=== PATIENT | female | born 1960 | race African-American/Black ===

== ENCOUNTER 2018-06-18 12:40 | Emergency (ER) | payer MEDICAID ==
[2018-06-18 12:48] VITALS: BP 147/66
--- NOTE | 2018-06-18 13:08 | ER Document Report ---
ED General - General Chief Complaint: Blood Pressure Problem Stated Complaint: BLOOD PRESSURE ISSUES Time Seen by Provider: 06/18/18 13:08 TRAVEL OUTSIDE OF THE [place] IN LAST 30 DAYS: No - HPI Patient complains to provider of: medication refill after moving Onset: Other - Related Data Allergies/Adverse Reactions: No Known Allergies Allergy (Verified 06/18/18 12:44) Past Medical History - General Information source: Patient - Social History Smoking Status: Never Smoker Family History: None Review of Systems - Review of Systems -: Yes All other systems reviewed and negative Physical Exam - Vital signs Vitals: Temp Pulse Resp BP Pulse Ox 98.9 F 93 18 147/66 H 100 06/18/18 12:47 06/18/18 12:47 06/18/18 12:47 06/18/18 12:47 06/18/18 12:47 - General General appearance: Appears well In distress: None - HEENT Head: Normocephalic Eyes: Normal Conjunctiva: Normal - Respiratory Respiratory status: No respiratory distress Chest status: Nontender Breath sounds: Normal - Cardiovascular Rhythm: Regular Heart sounds: Normal auscultation Murmur: No - Abdominal Inspection: Normal - Back Back: Normal - Extremities General upper extremity: Normal inspection General lower extremity: Normal inspection - Neurological Neuro grossly intact: Yes Cognition: Normal Orientation: AAOx4 - Psychological Associated symptoms: Normal affect Course - Re-evaluation Re-evalutation: 06/18/18 19:09 Ms. Sanford presents for evaluation of medication refill in the setting of having moved recently from [place] and losing her care. She takes amlodipine as well as aspirin daily for hypertension she has had a stroke in the past as well as uncontrolled hypertension because of her previous history believe it is her best in benefit to treat her, will plan for administration of this medication well emergency department prescription for one -month supply of each medication encouraged follow-up she is now got Medicaid believes that she will be able to obtain follow-up appropriately. Patient be discharged with return precautions at this time she does have known hypertension she will follow-up the next 2 weeks in regard to this, she has been treated with amlodipine, she has no focal numbness or weakness is otherwise well-appearing. - Vital Signs Vital signs: Temp Pulse Resp BP Pulse Ox 98.9 F 93 18 147/66 H 100 06/18/18 12:47 06/18/18 12:47 06/18/18 12:47 06/18/18 12:47 06/18/18 12:47 Discharge - Discharge Clinical Impression: Medication care plan discussed with patient, Medication refill Hypertension Qualifiers: Hypertension type: unspecified Qualified Code(s): I10 - Essential (primary) hypertension Condition: Good Disposition: HOME, SELF-CARE Instructions: High Blood Pressure ([facility]), High Blood Pressure, Requiring Treatment ([facility]) Additional Instructions: You were seen in the emergency department for your high blood pressure and running out of medications, you had evaluation including physical exam, you should schedule an appointment with a physician in the coming week for blood pressure control management. You have had a refill prescribed of your amlodipine as well as aspirin. Please take them as directed. Return for any worsening chest pain shortness of breath fevers or chills. Prescriptions: Amlodipine Besylate 10 mg PO DAILY #30 tab Aspirin [Aspirin 325 mg Tablet] 325 mg PO DAILY PRN #1 pkg PRN Reason: Forms: Elevated Blood Pressure
[2018-06-18] MEDS ORDERED: AMLODIPINE BESYLATE 10 MG TABLET PO ONE (13:19)
[2018-06-18] MEDS ORDERED: ASPIRIN 325 MG TABLET PO ONE (13:19)
== END 2018-06-18 13:25 | disposition home or self-care (01) ==
LOC: ER 12:40
DX: I10 Essential (primary) hypertension (principal)
CPT/HCPCS: 99283

== ENCOUNTER 2018-10-29 16:32 | Emergency (ER) | payer MEDICAID ==
--- NOTE | 2018-10-29 17:42 | ER Document Report ---
HPI - HPI Patient complains to provider of: Insomnia last night Time Seen by Provider: 10/29/18 17:09 Onset: Yesterday Quality of pain: No pain Severity: None Pain Level: Denies Context: 58-year-old female presented to ED because she could not sleep at all last night. Daughter states she has a history of high blood pressure, insomnia, paranoid schizophrenia, and has had a bilateral tubal ligation and her gallbladder removed. Patient was very confused and was not able to give us history until her daughter returned to the room. Patient is on Sertraline 25 mg 1 qd, trazodone 50 mg 1/2-1 pill daily in the evening for sleep, aspirin 325 1 by mouth daily vitamin D 2 50,000 units 1 weekly and amlodipine 5 mg 1 by mouth daily. States she has not seen a mental health provider while she has been in this area. I have given her a list of mental health providers to follow-up with. Associated Symptoms: Other - Insomnia last night Exacerbated by: Denies Relieved by: Denies Similar symptoms previously: Yes Recently seen / treated by doctor: No - ROS ROS below otherwise negative: Yes - CONSTITUTIONAL Constitutional: DENIES: Fever, Chills - EENT EENT: DENIES: Sore Throat, Ear Pain, Nasal Drainage-Clear, Nasal Drainage- Purulent, Congestion, Eye problems - NEURO Neurology: DENIES: Headache, Weakness, Vision blurred, Dizzinesss / Vertigo - CARDIOVASCULAR Cardiovascular: DENIES: Chest pain - RESPIRATORY Respiratory: DENIES: Trouble Breathing, Coughing - GASTROINTESTINAL Gastrointestinal: DENIES: Abdominal Pain, Nausea, Patient vomiting, Diarrhea, Constipation, Black / Bloody Stools - URINARY Urinary: DENIES: Dysuria, Urgency, Frequency - REPRODUCTIVE Reproductive: DENIES: :, Postmenopausal, Abnormal bleeding / discharge - MUSCULOSKELETAL Musculoskeletal: DENIES: Extremity pain, Back Pain, Neck Pain, Swelling - DERM Skin Color: Normal Skin Problems: None Past Medical History - General Information source: Relative - Daughter - Social History Smoking Status: Never Smoker Frequency of alcohol use: None Drug Abuse: None Lives with: Family Family History: None Patient has suicidal ideation: No Patient has homicidal ideation: No - Past Medical History Cardiac Medical History: Reports: Hx Hypertension Pulmonary Medical History: Reports: None EENT Medical History: Reports: None Neurological Medical History: Reports: Hx Cerebrovascular Accident - x 4 Endocrine Medical History: Reports: None Renal/ Medical History: Reports: None Malignancy Medical History: Reports: None GI Medical History: Reports: None Musculoskeletal Medical History: Reports None Skin Medical History: Reports None Psychiatric Medical History: Reports: Hx Depression, Hx Schizophrenia - Paranoid schizophrenia Traumatic Medical History: Reports: None Infectious Medical History: Reports: None Past Surgical History: Reports: Hx Cholecystectomy, Hx Tubal Ligation Vertical Provider Document - CONSTITUTIONAL Agree With Documented VS: Yes Exam Limitations: Other - She was confused and history was obtained from daughter General Appearance: WD/WN, No Apparent Distress - INFECTION CONTROL TRAVEL OUTSIDE OF THE [place] IN LAST 30 DAYS: No - HEENT HEENT: Atraumatic, Normal ENT Exam, Normocephalic, PERRLA - RESPIRATORY Respiratory: Breath Sounds Normal, No Respiratory Distress - MUSCULOSKELETAL/EXTREMETIES Musculoskeletal/Extremeties: MAEW, FROM, Non-Tender - NEURO Level of Consciousness: Awake, Alert, Confused Deep Tendon Reflexes: 2+ - DERM Integumentary: Warm, Dry, No Rash Course - Re-evaluation Re-evalutation: 10/29/18 17:44 Patient was seen in the ED for insomnia last night. Daughter states that she has not slept since yesterday morning. Daughter instructed to give the patient 2 of her 50 mg trazodone's tonight and to follow-up with her primary doctor as soon as possible to have her medications adjusted. Daughter was also given a list of mental health providers in the area for her to follow-up with and have patient's medications adjusted. When daughter came back into the room patient was able to answer questions more appropriately. - Vital Signs Vital signs: Temp Pulse Resp BP Pulse Ox 98.9 F 117 H 20 177/82 H 100 10/29/18 16:42 10/29/18 16:42 10/29/18 16:42 10/29/18 16:42 10/29/18 16:42 Discharge - Discharge Clinical Impression: Insomnia Qualifiers: Insomnia type: unspecified Qualified Code(s): G47.00 - Insomnia, unspecified Condition: Stable Disposition: HOME, SELF-CARE Additional Instructions: Insomnia Everybody has trouble sleeping now and then. When it becomes a frequent problem, you must look for an underlying cause. Depression can interfere with sleep. Anxiety keeps people from falling asleep, while true depression causes fitful sleep and early awakening. If you think anxiety or depression might be your problem, your doctor can help. Many medicines can interfere with sleep. Try cutting back or eliminating caffeine. Watch out for "energizing" vitamins and herbs! Alcohol interferes powerfully with normal sleep. "Rebound insomnia" results when you stop taking sedating medicines like antihistamines, antianxiety medicine, or sleeping pills. Any medical problem that causes pain or bladder discomfort can interfere with sleep. Discuss any problem you have with your doctor. Get regular exercise. Have regular sleep times. Don't "sleep in." Avoid late afternoon naps. Sleeping pills may be temporarily helpful, but are never a long-term solution. FOLLOW-UP CARE: If you have been referred to a physician for follow-up care, call the physicians office for an appointment as you were instructed or within the next two days. If you experience worsening or a significant change in your symptoms, notify the physician immediately or return to the Emergency Department at any time for re-evaluation. Forms: Elevated Blood Pressure Referrals: CAITLIN LIMA PA-C [NO LOCAL MD] - Follow up as needed
[2018-10-29 18:43] VITALS: BP 145/72
== END 2018-10-29 18:48 | disposition home or self-care (01) ==
LOC: ER 16:32
DX: G47.00 Insomnia, unspecified (principal); I10 Essential (primary) hypertension; Z98.51 Tubal ligation status; Z90.49 Acquired absence of other specified parts of digestive tract; Z86.73 Personal history of transient ischemic attack (TIA), and cerebral infarction without residual deficits
CPT/HCPCS: 99283

== ENCOUNTER 2018-11-03 17:25 | Emergency (ER) | payer MEDICAID ==
--- NOTE | 2018-11-03 19:07 | ER Document Report ---
ED Medical Screen (RME) - General Chief Complaint: Psych Problem Stated Complaint: PSYCH PROBLEM Time Seen by Provider: 11/03/18 18:55 TRAVEL OUTSIDE OF THE [place] IN LAST 30 DAYS: No - Related Data Allergies/Adverse Reactions: No Known Allergies Allergy (Verified 11/03/18 19:02) Past Medical History - Social History Chew tobacco use (# tins/day): No Frequency of alcohol use: None Drug Abuse: None - Past Medical History Cardiac Medical History: Reports: Hx Hypertension Neurological Medical History: Reports: Hx Cerebrovascular Accident - x 4 Renal/ Medical History: Denies: Hx Peritoneal Dialysis Psychiatric Medical History: Reports: Hx Bipolar Disorder, Hx Depression, Hx Schizophrenia - Paranoid schizophrenia Past Surgical History: Reports: Hx Cholecystectomy, Hx Tubal Ligation Physical Exam - Vital signs Vitals: Temp Pulse Resp BP Pulse Ox 98.5 F 83 16 148/60 H 97 11/03/18 17:48 11/03/18 17:48 11/03/18 17:48 11/03/18 17:48 11/03/18 17:48 Course - Re-evaluation Re-evalutation: 11/03/18 19:07 There is a 58-year-old female with schizophrenia and a persistent paranoid delusion that a man is out to get her. Over the last 2 weeks her sister notes who is also her primary caregiver at home that she continues to think that she is seeing a gentleman named Florentino who is attempting to kill her. This is making her sometimes do unpredictable things. Have seen and evaluated this patient in rapid medical screening examination, he will require further evaluation reassessment and disposition determination by secondary medical provider. - Vital Signs Vital signs: Temp Pulse Resp BP Pulse Ox 98.5 F 83 16 148/60 H 97 11/03/18 17:48 11/03/18 17:48 11/03/18 17:48 11/03/18 17:48 11/03/18 17:48
[2018-11-03 19:59] LABS: ABSOLUTE EOSINOPHILS # (AUTO) 0.1 10^3/uL (0.0-0.6); ABSOLUTE LYMPHOCYTES (AUTO) 2.4 10^3/uL (0.5-4.7); ABSOLUTE MONOCYTES (AUTO) 0.4 10^3/uL (0.1-1.4); ABSOLUTE NEUT (AUTO) 4.5 10^3/uL (1.7-8.2); BASOPHILS % (AUTO) 0.4 % (0-2); EOSINOPHILS % (AUTO) 1.2 % (0-6); HEMATOCRIT 37.3 % (36.0-47.0); HEMOGLOBIN 12.5 g/dL (12.0-15.5); LYMPHOCYTES % (AUTO) 32.6 % (13-45); MEAN CORPUSCULAR HEMOGLOBIN 27.8 pg (27.0-33.4); MEAN CORPUSCULAR HGB CONC 33.4 g/dL (32.0-36.0); MEAN CORPUSCULAR VOLUME 83 fl (80-97); MONOCYTES % (AUTO) 5.2 % (3-13); PLATELET COUNT 257 10^3/uL (150-450); RED BLOOD COUNT 4.48 10^6/uL (3.72-5.28); RED CELL DISTRIBUTION WIDTH 14.1 % (11.5-14.0); SEGMENTED NEUTROPHILS % (AUTO) 60.6 % (42-78); TOTAL CELLS COUNTED % (AUTO) 100 %; WHITE BLOOD COUNT 7.5 10^3/uL (4.0-10.5)
[2018-11-03 20:13] LABS: ALANINE AMINOTRANSFERASE 16 U/L (9-52); ALBUMIN 4.4 g/dL (3.5-5.0); ALKALINE PHOSPHATASE 86 U/L (38-126); ANION GAP 8 (5-19); ASPARTATE AMINO TRANSFERASE 13 U/L (14-36); BILIRUBIN,DIRECT 0.2 mg/dL (0.0-0.4); BILIRUBIN,TOTAL 0.3 mg/dL (0.2-1.3); BLOOD UREA NITROGEN 12 mg/dL (7-20); CALCIUM 9.5 mg/dL (8.4-10.2); CARBON DIOXIDE 29 mmol/L (22-30); CHLORIDE 108 mmol/L (98-107); GLUCOSE 91 mg/dL (75-110); POTASSIUM 3.7 mmol/L (3.6-5.0); SALICYLATE 3.6 mg/dL (2.0-20.0); SODIUM 144.6 mmol/L (137-145); TOTAL PROTEIN 7.5 g/dL (6.3-8.2)
[2018-11-03 20:14] LABS: ACETAMINOPHEN < 10 ug/mL (10-30); ALCOHOL < 10 mg/dL (NONE DETECTED)
[2018-11-03 21:15] LABS: APPEARANCE,URINE CLOUDY; BILIRUBIN,URINE NEGATIVE (NEGATIVE); COLOR,URINE YELLOW; GLUCOSE, URINE NEGATIVE (NEGATIVE); KETONES,URINE NEGATIVE (NEGATIVE); LEUKOCYTE ESTERASE,URINE TRACE (NEGATIVE); NITRITE,URINE NEGATIVE (NEGATIVE); PROTEIN,URINE 30 mg/dL (NEGATIVE); URINE SPECIFIC GRAVITY 1.016; UROBILINOGEN,URINE NEGATIVE mg/dL (<2.0)
[2018-11-03 21:17] LABS: URINE AMPHETAMINES SCREEN NEGATIVE; URINE BARBITURATES SCREEN NEGATIVE; URINE BENZODIAZEPINES SCREEN NEGATIVE; URINE COCAINE SCREEN NEGATIVE; URINE MARIJUANA (THC) SCREEN NEGATIVE; URINE METHADONE SCREEN NEGATIVE; URINE PHENCYCLIDINE SCREEN NEGATIVE
[2018-11-03] MEDS ORDERED: HALOPERIDOL 5 MG TABLET PO ONE (22:59)
--- NOTE | 2018-11-03 22:59 | EKG REPORT ---
SEVERITY:- ABNORMAL ECG - SINUS RHYTHM INFERIOR INFARCT, AGE INDETERMINATE : Confirmed by: Ana Rivas MD 03-Nov-2018 22:58:31
--- NOTE | 2018-11-03 23:00 | ER Document Report ---
Addendum entered and electronically signed by BRITTNY GAVIRIA PSYD 11/04/18 12:49: Discharge - Discharge Clinical Impression: Acute paranoia, Delusion Schizophrenia Qualifiers: Schizophrenia type: unspecified Qualified Code(s): F20.9 - Schizophrenia, unspecified Condition: Stable Disposition: HOME, SELF-CARE Additional Instructions: You were assessed and evaluated at [facility] ED by the medical and behavioral health teams for paranoia and delusions and determined to be appropriate for discharge. During your stay you received the following services: initial medical screening, labs, EKG, medications, meal services, nursing services, direct staff observ ation, case management, clinical evaluation, physician assessment and re- assessment. Review of record revealed you had a recent visit to the ED for a similar presentation and returned to your outpatient provider who did a medication adjustment without effect. No medication adjustments were made during this stay as you reported you were able to obtain sleep. You have a follow up appointment scheduled with [facility] on November 17, 2018 and are encouraged to attend that appointment and remain compliant with your medication. Schizophrenia Schizophrenia is a chemical disorder that affects how the brain functions. The exact cause is unknown, but it tends to run in families. It is NOT caused by emotional trauma. Schizophrenia causes disordered thinking, including unusual beliefs and inability to "process" happenings around the patient. Patients with schizophrenia benefit greatly from medicine. These medicines are called antipsychotics. Never stop the medicine without the doctor's approval. Counselling may help the patient deal with his disease. Schizophrenics require a very ordered environment. Stresses and sudden changes may bring out symptoms. Drugs and alcohol abuse may become problems. Contact the counselor or crisis line if there are thoughts of suicide or of harming others, or if you become aware of unusual thoughts or beliefs Referrals: [facility] [Provider Group] - Follow up as needed Original Note: ED General - General Chief Complaint: Psych Problem Stated Complaint: PSYCH PROBLEM Time Seen by Provider: 11/03/18 18:55 Notes: Patient is a 58-year-old female with a past medical history of schizophrenia who presents with 2 weeks of progressively worsening paranoid delusions and irregular behaviors per the sister with whom she lives. Patient apparently has a fixed paranoid delusion that there is a man who is trying to murder her. The sister reports that this does result in the patient having erratic behaviors, regular sleep patterns and being increasingly agitated. The patient has been taking all medications as prescribed and the sister states these do not appear to result in any improvement. No obvious trigger for the worsening of her underlying schizophrenia. No alcohol or drug use. Patient denies any physical symptoms or complaints. They have not seen the patient's psychiatrist regarding today's concerns. TRAVEL OUTSIDE OF THE [place] IN LAST 30 DAYS: No - Related Data Allergies/Adverse Reactions: No Known Allergies Allergy (Verified 11/03/18 19:02) Past Medical History - General Information source: Patient, Relative - Social History Smoking Status: Never Smoker Chew tobacco use (# tins/day): No Frequency of alcohol use: None Drug Abuse: None Lives with: Family Family History: Reviewed & Not Pertinent Patient has suicidal ideation: No Patient has homicidal ideation: No - Past Medical History Cardiac Medical History: Reports: Hx Hypertension Neurological Medical History: Reports: Hx Cerebrovascular Accident - x 4 Renal/ Medical History: Denies: Hx Peritoneal Dialysis Psychiatric Medical History: Reports: Hx Bipolar Disorder, Hx Depression, Hx Schizophrenia - Paranoid schizophrenia Past Surgical History: Reports: Hx Cholecystectomy, Hx Tubal Ligation Review of Systems - Review of Systems Notes: Constitutional: Negative for fever. HENT: Negative for sore throat. Eyes: Negative for visual changes. Cardiovascular: Negative for chest pain. Respiratory: Negative for shortness of breath. Gastrointestinal: Negative for abdominal pain, vomiting or diarrhea. Genitourinary: Negative for dysuria. Musculoskeletal: Negative for back pain. Skin: Negative for rash. Neurological: Negative for headaches, weakness or numbness. 10 point ROS negative except as marked above and in HPI. Physical Exam - Vital signs Vitals: Temp Pulse Resp BP Pulse Ox 98.5 F 83 16 148/60 H 97 11/03/18 17:48 11/03/18 17:48 11/03/18 17:48 11/03/18 17:48 11/03/18 17:48 Interpretation: Hypertensive Notes: PHYSICAL EXAMINATION: GENERAL: Well-appearing, well-nourished and in no acute distress. HEAD: Atraumatic, normocephalic. EYES: Pupils equal round and reactive to light, extraocular movements intact, sclera anicteric, conjunctiva are normal. ENT: nares patent, oropharynx clear without exudates. Moist mucous membranes. NECK: Normal range of motion, supple without lymphadenopathy LUNGS: Breath sounds clear to auscultation bilaterally and equal. No wheezes rales or rhonchi. HEART: Regular rate and rhythm without murmurs ABDOMEN: Soft, nontender, normoactive bowel sounds. No guarding, no rebound. No masses appreciated. EXTREMITIES: Normal range of motion, no pitting or edema. No cyanosis. NEUROLOGICAL: No focal neurological deficits. Moves all extremities spontaneously and on command. PSYCH: Normal mood, normal affect. SKIN: Warm, Dry, normal turgor, no rashes or lesions noted. Course - Re-evaluation Re-evalutation: 11/03/18 22:59 Patient presents with increasing paranoid delusions that there is a man who is trying to murder her. Her sister with whom she resides reports that this is causing abnormal and concerning behaviors home and that she is increasingly concerned about the patient's safety. Here the patient is calm and cooperative. Denies any acute medical complaints. Does not appear to be actively responding to internal stimuli at this point. Medical screening lab and exams are unremarkable. Patient is cleared for evaluation and disposition by behavioral health services in the morning. - Vital Signs Vital signs: Temp Pulse Resp BP Pulse Ox 98.3 F 81 18 142/63 H 100 11/04/18 02:35 11/04/18 02:35 11/04/18 02:35 11/04/18 02:35 11/04/18 02:35 - Laboratory Result Diagrams: 11/03/18 19:29 11/03/18 19:29 Laboratory results interpreted by me: 11/03/18 11/03/18 11/03/18 19:29 19:29 20:27 RDW 14.1 H Chloride 108 H Est GFR (Non-Af Amer) 54 L AST 13 L Urine Protein 30 H Ur Leukocyte Esterase TRACE H Acetaminophen < 10 L - EKG Interpretation by Me Additional EKG results interpreted by me: 11/04/18 05:17 Sinus rhythm, rate 84. No ST elevations or depressions. QTC is 473. Discharge - Discharge Clinical Impression: Acute paranoia, Delusion Schizophrenia Qualifiers: Schizophrenia type: unspecified Qualified Code(s): F20.9 - Schizophrenia, unspecified
[2018-11-03] MEDS ORDERED: TRAZODONE HCL 50 MG TABLET PO ONE (23:30)
--- NOTE | 2018-11-04 09:09 | ER Document Report ---
Doctor's Note Notes: 11/04/18 09:33 Patient seen and evaluated by myself. No issues overnight per nursing. Patient's vital signs are stable. She is a 58-year-old female with a past medical history of schizophrenia who presents with worsening paranoid delusions and irregular behaviors per the sister. Patient has been believing that there i s a man trying to murder her. Patient was medically cleared. She received haldol and trazodone last night. in the room today, patient denies any suicidal ideations, homicidal ideations, delusions, hallucinations. The patient's sister is in the room with her. She states that she is much better today. Behavioral health was consulted. Awaiting their recommendations. 11/04/18 09:34 11/04/18 13:10 Behavioral health evaluated the patient. Patient's psychosis has resolved. Patient's sister is in the room. She states that she is acting like her normal self. She states that she is remarkably improved. Patient has a follow-up appointment with [facility] on the .
[2018-11-04 13:17] VITALS: BP 155/74
[2018-11-04] MEDS ORDERED: TRAZODONE HCL 50 MG TABLET PO SCH (22:00)
== END 2018-11-04 13:17 | disposition home or self-care (01) ==
LOC: ER 17:25
DX: F20.9 Schizophrenia, unspecified (principal); I10 Essential (primary) hypertension; Z86.73 Personal history of transient ischemic attack (TIA), and cerebral infarction without residual deficits
CPT/HCPCS: 93005; 99284; 36415; 80307 ×4; 85025; 80053; 81001; 93010; J3490 ×2

== ENCOUNTER 2019-02-11 17:21 | Emergency (ER) | payer MEDICAID, OTHER ==
--- NOTE | 2019-02-11 17:56 | ER Document Report ---
ED Medical Screen (RME) - General Chief Complaint: Psych Problem Stated Complaint: PSYCH EVAL Mode of Arrival: Ambulatory Information source: Patient, Relative - Daughter Notes: Patient is a 58-year-old female with schizophrenia and bipolar disorder presenting to the emergency department for a mental health evaluation. Patient reports that she feels like people are trying to poison her and kill her. Patient reports auditory hallucinations. Patient denies any suicidal or homicidal ideations. Patient is accompanied by her daughter. Patient is calm, cooperative and answering all questions. Exam: Patient alert, oriented x4. Lung sounds are clear and equal bilaterally. I have greeted and performed a rapid initial assessment of this patient. A comprehensive ED assessment and evaluation of the patient, analysis of test results and completion of the medical decision making process will be conducted by additional ED providers. Dictation of this chart was performed using voice recognition software; therefore, there may be some unintended grammatical errors. TRAVEL OUTSIDE OF THE [place] IN LAST 30 DAYS: No - Related Data Allergies/Adverse Reactions: No Known Allergies Allergy (Verified 11/03/18 19:02) Past Medical History - Past Medical History Cardiac Medical History: Reports: Hx Hypertension Neurological Medical History: Reports: Hx Cerebrovascular Accident - x 4 Renal/ Medical History: Denies: Hx Peritoneal Dialysis Psychiatric Medical History: Reports: Hx Bipolar Disorder, Hx Depression, Hx Schizophrenia - Paranoid schizophrenia Past Surgical History: Reports: Hx Cholecystectomy, Hx Tubal Ligation Physical Exam - Vital signs Vitals: Temp Pulse Resp BP Pulse Ox 98.4 F 86 20 154/55 H 99 02/11/19 17:32 02/11/19 17:32 02/11/19 17:32 02/11/19 17:32 02/11/19 17:32 Course - Vital Signs Vital signs: Temp Pulse Resp BP Pulse Ox 98.4 F 86 20 154/55 H 99 02/11/19 17:32 02/11/19 17:32 02/11/19 17:32 02/11/19 17:32 02/11/19 17:32
[2019-02-11 18:56] LABS: ABSOLUTE EOSINOPHILS # (AUTO) 0.1 10^3/uL (0.0-0.6); ABSOLUTE LYMPHOCYTES (AUTO) 2.2 10^3/uL (0.5-4.7); ABSOLUTE MONOCYTES (AUTO) 0.4 10^3/uL (0.1-1.4); BASOPHILS % (AUTO) 0.5 % (0-2); EOSINOPHILS % (AUTO) 1.9 % (0-6); HEMATOCRIT 38.2 % (36.0-47.0); HEMOGLOBIN 12.6 g/dL (12.0-15.5); LYMPHOCYTES % (AUTO) 32.5 % (13-45); MEAN CORPUSCULAR HEMOGLOBIN 27.5 pg (27.0-33.4); MEAN CORPUSCULAR VOLUME 83 fl (80-97); PLATELET COUNT 226 10^3/uL (150-450); RED BLOOD COUNT 4.59 10^6/uL (3.72-5.28); RED CELL DISTRIBUTION WIDTH 14.7 % (11.5-14.0); SEGMENTED NEUTROPHILS % (AUTO) 59.1 % (42-78); TOTAL CELLS COUNTED % (AUTO) 100 %; WHITE BLOOD COUNT 6.7 10^3/uL (4.0-10.5)
[2019-02-11 19:02] LABS: AMORPHOUS SEDIMENT,URINE TRACE /HPF; APPEARANCE,URINE SLIGHTLY-CLOUDY; BILIRUBIN,URINE NEGATIVE (NEGATIVE); COLOR,URINE YELLOW; GLUCOSE, URINE NEGATIVE (NEGATIVE); KETONES,URINE NEGATIVE (NEGATIVE); LEUKOCYTE ESTERASE,URINE SMALL (NEGATIVE); NITRITE,URINE NEGATIVE (NEGATIVE); PROTEIN,URINE 30 mg/dL (NEGATIVE); URINE SPECIFIC GRAVITY 1.013; UROBILINOGEN,URINE NEGATIVE mg/dL (<2.0)
--- NOTE | 2019-02-11 19:09 | ER Document Report ---
ED General - General Chief Complaint: Psych Problem Stated Complaint: PSYCH EVAL Time Seen by Provider: 02/11/19 18:21 Mode of Arrival: Ambulatory Notes: Patient is a 58-year-old female with schizophrenia and bipolar disorder presenting to the emergency department for a mental health evaluation. Patient reports that she feels like people are trying to poison her and kill her. Patient reports auditory hallucinations. Patient denies any suicidal or homicidal ideations. Patient is accompanied by her daughter. She apparently receives a depo type injection of a antipsychotic the name of which she and her daughter cannot recall. Daughter states she is concerned that this is not effective and not controlling her symptoms. Patient is currently calm and cooperative, poor historian secondary to underlying mental health disorder and majority of history is as provided by the daughter. She does report the mother has a history of similar symptoms in the past when her medications have not been well regulated. She does follow [facility] for her psychiatric conditions. She denies any acute medical complaints. Daughter denies any concern for infectious etiology. Nothing is been noted to improve or worsen the patient's symptoms. TRAVEL OUTSIDE OF THE [place] IN LAST 30 DAYS: No - Related Data Allergies/Adverse Reactions: No Known Allergies Allergy (Verified 11/03/18 19:02) Past Medical History - General Information source: Patient, Relative - Daughter - Social History Smoking Status: Never Smoker Frequency of alcohol use: None Drug Abuse: None Lives with: Family Family History: Reviewed & Not Pertinent Patient has suicidal ideation: No Patient has homicidal ideation: No - Past Medical History Cardiac Medical History: Reports: Hx Hypertension Neurological Medical History: Reports: Hx Cerebrovascular Accident - x 4 Renal/ Medical History: Denies: Hx Peritoneal Dialysis Psychiatric Medical History: Reports: Hx Bipolar Disorder, Hx Depression, Hx Schizophrenia - Paranoid schizophrenia Past Surgical History: Reports: Hx Cholecystectomy, Hx Tubal Ligation Review of Systems - Review of Systems Notes: Constitutional: Negative for fever. HENT: Negative for sore throat. Eyes: Negative for visual changes. Cardiovascular: Negative for chest pain. Respiratory: Negative for shortness of breath. Gastrointestinal: Negative for abdominal pain, vomiting or diarrhea. Genitourinary: Negative for dysuria. Musculoskeletal: Negative for back pain. Skin: Negative for rash. Neurological: Negative for headaches, weakness or numbness. 10 point ROS negative except as marked above and in HPI. Physical Exam - Vital signs Vitals: Temp Pulse Resp BP Pulse Ox 98.4 F 86 20 154/55 H 99 02/11/19 17:32 02/11/19 17:32 02/11/19 17:32 02/11/19 17:32 02/11/19 17:32 Interpretation: Hypertensive Notes: PHYSICAL EXAMINATION: GENERAL: Well-appearing, well-nourished and in no acute distress. HEAD: Atraumatic, normocephalic. EYES: Pupils equal round and reactive to light, extraocular movements intact, sclera anicteric, conjunctiva are normal. ENT: nares patent, oropharynx clear without exudates. Moist mucous membranes. NECK: Normal range of motion, supple without lymphadenopathy LUNGS: Breath sounds clear to auscultation bilaterally and equal. No wheezes rales or rhonchi. HEART: Regular rate and rhythm without murmurs ABDOMEN: Soft, nontender, normoactive bowel sounds. No guarding, no rebound. No masses appreciated. EXTREMITIES: Normal range of motion, no pitting or edema. No cyanosis. NEUROLOGICAL: No focal neurological deficits. Moves all extremities spontaneously and on command. PSYCH: Delayed response to questioning, appears to be some degree of cognitive impairment. Does not appear to be actively responding to internal stimuli. Very pleasant on contact. SKIN: Warm, Dry, normal turgor, no rashes or lesions noted. Course - Re-evaluation Re-evalutation: 02/11/19 19:08 Patient presents with paranoid delusions, concern of response to internal stimuli at home. She denies any acute safety concerns as is her daughter at the bedside. Patient and family have elected to stay here overnight on a voluntary basis for evaluation by [facility] in the morning for possible medication adjustments. The patient denies any acute medical concerns as is her daughter at the bedside. Medical screening exam unremarkable. She is otherwise cleared for evaluation and disposition by [facility] in the morning. - Vital Signs Vital signs: Temp Pulse Resp BP Pulse Ox 98.4 F 86 20 154/55 H 99 02/11/19 17:32 02/11/19 17:32 02/11/19 17:32 02/11/19 17:32 02/11/19 17:32 - Laboratory Result Diagrams: 02/11/19 18:07 02/11/19 18:07 Laboratory results interpreted by me: 02/11/19 18:07 RDW 14.7 H - EKG Interpretation by Me Additional EKG results interpreted by me: 02/11/19 19:08 Sinus rhythm, rate 72. No ST elevations or depressions. QTC is 434. Discharge - Discharge Clinical Impression: Auditory hallucinations, Paranoid delusion Condition: Stable Disposition: HOME, SELF-CARE
[2019-02-11 19:16] LABS: URINE AMPHETAMINES SCREEN NEGATIVE; URINE BARBITURATES SCREEN NEGATIVE; URINE BENZODIAZEPINES SCREEN NEGATIVE; URINE COCAINE SCREEN NEGATIVE; URINE MARIJUANA (THC) SCREEN NEGATIVE; URINE METHADONE SCREEN NEGATIVE; URINE PHENCYCLIDINE SCREEN NEGATIVE
[2019-02-11 19:17] LABS: ACETAMINOPHEN < 10 ug/mL (10-30); ALANINE AMINOTRANSFERASE 19 U/L (9-52); ALBUMIN 4.2 g/dL (3.5-5.0); ALCOHOL < 10 mg/dL (NONE DETECTED); ALKALINE PHOSPHATASE 72 U/L (38-126); ANION GAP 9 (5-19); ASPARTATE AMINO TRANSFERASE 14 U/L (14-36); BILIRUBIN,DIRECT 0.3 mg/dL (0.0-0.4); BILIRUBIN,TOTAL 0.3 mg/dL (0.2-1.3); BLOOD UREA NITROGEN 15 mg/dL (7-20); CALCIUM 9.7 mg/dL (8.4-10.2); CARBON DIOXIDE 27 mmol/L (22-30); CHLORIDE 110 mmol/L (98-107); GLUCOSE 84 mg/dL (75-110); POTASSIUM 4.2 mmol/L (3.6-5.0); SALICYLATE 1.8 mg/dL (2.0-20.0); SODIUM 146.4 mmol/L (137-145); TOTAL PROTEIN 7.4 g/dL (6.3-8.2)
--- NOTE | 2019-02-11 23:42 | EKG REPORT ---
SEVERITY:- BORDERLINE ECG - SINUS RHYTHM BORDERLINE INFERIOR Q WAVES : Confirmed by: Jerica Sierra 11-Feb-2019 23:41:39
--- NOTE | 2019-02-12 08:45 | PSYCHOLOGICAL NOTE ---
Psych Note - Psych Note Date seen by psych provider: 02/12/19 Time seen by psych provider: 07:35 Psych Note: Reason for Consult: Delusions Patient presented to [facility] ED with concerns for her mental health. Upon arrival last night she is accompanied by her daughter. The patient states she gets shots every month. States it feels like someone is slicing her up inside and someone is trying to kill her. Patient reports that her daughter brought her to [facility] because people are trying to kill her. She states that "there is having needles inside of me they are trying to kill me." She confirms this is happened to her before and that she takes medication. Patient is asked where she picks up her medications from which she responds "they are trying to kill me." When asked again where she picks up her medications she is able to tell clinician Abhi. When thank for speaking with clinician she reports again that they are putting needles inside of her. Patient is alert and orientated to person and place. Patient is unable to demonstrate time and circumstance orientation. Patient denies suicidal homicidal ideation. Patient is observed sitting on the side of her bed. Slight psychomotor agitation is noted with her hands however other than that patient is notably very still. Patient reports persecutory delusions with tactile hallucinations of someone trying to kill her by putting needles inside of her. Thought processes are disorganized. Thought content is very fixated on delusions and difficult to redirect to different conversational topics. Eye contact is poor. Poverty of speech is noted with conversational speech notably very slow with the patient having difficulty forming words and word searching. Attention and concentration is poor. Insight, judgment, impulse control is poor. 295.70 (F25.0) schizoaffective disorder; bipolar type per history provided by patient's daughter Impression\\plan: Patient is recommended for [facility] for continued mental health observation. Patient is demonstrating poverty of speech with notable difficulties with conversational speech i.e. slow, difficulty forming words, word searching. Patient reports feeling that people are trying to kill her by shoving needles inside of her.
--- NOTE | 2019-02-12 09:45 | ER Document Report ---
Doctor's Note Notes: 02/12/19 09:44 58-year-old female patient with auditory hallucinations and paranoid delusions who is convinced people are trying to kill her and putting needles inside of her. Today she is feeling well and states she got a very good night sleep and would like to go home. She does confirm that she got her Aristada monthly injection a few days ago. At this time she is being placed on IVC hold until her paranoid delusions improve. The urinalysis obtained yesterday grew gram-negative rods. She will be started on Keflex 500 mg 3 times daily, pending culture and sensitivity results. 02/12/19 14:22 Patient has been accepted at [facility]. When she is transferred, she will be given a prescription for Keflex 500 mg 3 times daily #15.
[2019-02-12] MEDS: CEPHALEXIN 500 MG CAPSULE PO SCH ×2 (10:04→14:51)
[2019-02-12 15:28] VITALS: BP 157/67
== END 2019-02-12 15:28 ==
LOC: ER 17:21
DX: F20.0 Paranoid schizophrenia (principal); N39.0 Urinary tract infection, site not specified; R31.9 Hematuria, unspecified; F31.9 Bipolar disorder, unspecified; Z79.899 Other long term (current) drug therapy; I10 Essential (primary) hypertension
CPT/HCPCS: 36415; 80053; 80307; 81001; 85025; 87086; 87088; 87186; 93005; 93010; 99285